=== PATIENT | male | born 1975 | race Caucasian/White ===

== ENCOUNTER 2017-01-26 12:20 | Emergency (ER) | payer OTHER ==
[~2017-01-26] VITALS: Ht 172.7 cm; Wt 108.9 kg
[~2017-01-26 12:20] MED LIST: ALLERGY MED PO; CETIRIZINE HCL10 MG PO; CIPROFLOXACIN250 MG PO; ISENTRESS400 MG PO; MOTRIN; NASAL SPRAY NS; NORCO 5-325 TA1 EACH PO; OMEPRAZOLE20 MG PO; PEPTO-BISMOL262 MG PO; SUMATRIPTAN SU100 MG PO; TRUVADA 200 MG1 EACH PO; VITAMIN D250000 UNIT PO; VITAMIN E PO; VITAMINS PO; ZANTAC PO; naproxen PO
== END 2017-01-26 14:40 | disposition home or self-care (01) ==
LOC: ED 12:20
DX: G43.909 Migraine, unspecified, not intractable, without status migrainosus (principal); K21.9 Gastro-esophageal reflux disease without esophagitis; Z87.891 Personal history of nicotine dependence; Z98.890 Other specified postprocedural states
CPT/HCPCS: 96361; 96374; 96375; 99282; J1200; J2765; J7030

== ENCOUNTER 2017-06-02 20:14 | Emergency (ER) | payer OTHER ==
[~2017-06-02] VITALS: Ht 172.7 cm; Wt 108.9 kg
[2017-06-02] MEDS ORDERED: FLONASE ALLERG9.9 ML NAS (20:28)
== END 2017-06-02 22:24 | disposition home or self-care (01) ==
LOC: ED 20:14
DX: G43.909 Migraine, unspecified, not intractable, without status migrainosus (principal); K21.9 Gastro-esophageal reflux disease without esophagitis; Z87.891 Personal history of nicotine dependence; Z79.899 Other long term (current) drug therapy
CPT/HCPCS: 96361; 96374; 96375; 99282; J1200; J1885; J2405; J2550; J2765; J7030

== ENCOUNTER 2017-08-02 10:04 | Emergency (ER) | payer OTHER ==
[~2017-08-02] VITALS: Ht 172.7 cm; Wt 108.9 kg
[~2017-08-02 10:04] MED LIST changes: +FLONASE ALLERG9.9 ML NAS
[2017-08-02] MEDS ORDERED: KETOROLAC TROME10 MG PO (12:04)
== END 2017-08-02 12:20 | disposition home or self-care (01) ==
LOC: ED 10:04
DX: M25.521 Pain in right elbow (principal); Z87.891 Personal history of nicotine dependence
CPT/HCPCS: 73080; 99283

== ENCOUNTER 2017-12-04 21:48 | Emergency (ER) | payer OTHER ==
[~2017-12-04] VITALS: Ht 172.7 cm; Wt 108.9 kg
[~2017-12-04 21:48] MED LIST changes: +KETOROLAC TROME10 MG PO
[2017-12-04] MEDS ORDERED: NAPROSYN500 MG PO (22:07)
== END 2017-12-04 23:20 | disposition home or self-care (01) ==
LOC: ED 21:48
DX: R51 Headache (principal)
CPT/HCPCS: 96374; 96375; 99283; J1200; J1885; J2765; J7030

== ENCOUNTER 2020-11-26 05:49 | Emergency (ER) | payer OTHER ==
[~2020-11-26] VITALS: Ht 172.7 cm; Wt 108.9 kg
[~2020-11-26 05:49] MED LIST changes: +NAPROSYN500 MG PO
== END 2020-11-26 08:45 | disposition home or self-care (01) ==
LOC: ED 05:49
DX: U07.1 COVID-19 (principal); G43.909 Migraine, unspecified, not intractable, without status migrainosus; G47.30 Sleep apnea, unspecified; Z79.899 Other long term (current) drug therapy
CPT/HCPCS: 80048; 81001; 85025; 99283; A9270; C9803; U0003